=== PATIENT | male | born 1960 | race Caucasian/White ===

== ENCOUNTER → 2020-05-25 | Outpatient (CLI) | payer OTHER ==
[~2020-05-25] MED LIST: ASCO500 PO; Augmentin 875-1 EACH PO; IBUP400 PO; MIRALAX17 GM PO; TOCO1000 PO
[2020-06-04 12:11] LABS: COTININE <10.0 ng/mL (.); NICOTINE <10.0 ng/mL (.)
== END ==
LOC: LAB SHORT 14:40 → OLS 14:40
PROVIDERS: Surgery
DX: Z13.89 Encounter for screening for other disorder (principal)
CPT/HCPCS: G0480

== ENCOUNTER 2020-07-03 07:46 | Day surgery (SDC) | payer OTHER ==
[~2020-07-03] VITALS: Ht 174 cm; Wt 86.0 kg
--- NOTE | 2020-07-03 08:52 | NUR ---
Patient up to Ambulate independently. Gait steady. Discharge instructions reviewed with patient. Patient verbalizes understanding. Copy given to patient to take home. History, Chart, Medications and Allergies reviewed before start of procedure. Lungs clear T/O to Auscultation. Patient confirms NPO status and agrees with scheduled surgery. Patient States Post-Procedure ride home has been arranged.
--- NOTE | 2020-07-03 11:45 | NUR ---
Patient up to Ambulate independently. Gait steady. Dressing to procedure site clean, dry, intact with no visible drainage, swelling, erythema or bruising noted. Patient States Post-Procedure ride home has been arranged. Discharged via wheelchair to private car for ride home. ALL BELONINGS RETURNED TO PATIENT.
== END 2020-07-03 11:40 | disposition home or self-care (01) ==
LOC: ORSCMMR 07:46 → ORD 09:00 → ORSCMMR 09:00
PROVIDERS: Surgery
PROC: 0YU50JZ Supplement Right Inguinal Region with Synthetic Substitute, Open Approach (ICD-10-PCS; principal; 2020-07-03 09:00)
DX: K40.31 Unilateral inguinal hernia, with obstruction, without gangrene, recurrent (principal); I10 Essential (primary) hypertension; Z87.891 Personal history of nicotine dependence
CPT/HCPCS: A9270; C1781; J0690; J1100; J1885; J2250; J2405; J2704; J2710; J3010; J7120